=== PATIENT | male | born 1980 | race Caucasian/White ===

== ENCOUNTER → 2022-08-15 08:23 | Outpatient (CLI) | payer OTHER, SELFPAY ==
--- NOTE | ~2022-08-15 | US_ITS ---
Limited Abdominal Sonogram: Real-time sonographic imaging of the right upper quadrant was performed. Clinical History: Abnormal serum enzymes Findings: The liver appears echogenic, with no evidence of mass lesion or bile duct dilatation. Main portal vein demonstrates normal direction of flow. The gallbladder is well distended, and appears no rmal with no evidence of gallstone or wall thickening. The common bile duct measures 4 mm. The visua lized pancreas, aorta, and IVC are unremarkable. Impression: Diffuse fatty infiltration of liver. Reviewed, dictated and finalized at location M. [facility] Impression: Diffuse fatty infiltration of liver.
== END ==
PROVIDERS: PCP Family Medicine; Visit Provider Nurse Practitioner Family
DX: R74.8 Abnormal levels of other serum enzymes (principal); K76.0 Fatty (change of) liver, not elsewhere classified
CPT/HCPCS: 76705

== ENCOUNTER 2022-11-17 17:26 | Emergency (ER) | payer OTHER, SELFPAY ==
--- NOTE | ~2022-11-17 | XR_ITS ---
XR shoulder RT min 2V DATE: 11/17/2022 18:01 INDICATION: Shoulder popped out when reaching up TECHNIQUE: 4 views COMPARISON: 11/22/2008 right shoulder FINDINGS: There has been resection of the lateral portion of the right clavicle since 11/22/2008. No fracture or dislocation, periosteal reaction or bone destruction is noted. There is mild osteoarth ritic spurring at the glenohumeral joint. Mild calcification adjacent to the greater tuberosity sugge sts mild calcific tendinitis of the rotator cuff. IMPRESSION: Suggestion calcific tendinitis of rotator cuff Mild glenohumeral osteoarthritis Postoperative change of the lateral aspect of clavicle Reviewed, dictated and finalized at location A.
[2022-11-17 17:32] VITALS: BP 150/86; PULSE 88; RESP 20; TEMP 36.5; O2SAT 100
--- NOTE | 2022-11-17 17:49 | ED.UPPEXIN ---
HPI - Extremity Injury (Upper) General Chief Complaint: Extremity Injury, Upper Stated Complaint: rightr shoulder dislocation Time Seen by Provider: 11/17/22 17:49 History of Present Illness HPI narrative: PATIENT PRESENTS WITH CHRONIC PROBLEMS WITH HIS RIGHT SHOULDER. PATIENT FEELS IF HE HAS POPPED HIS SHOULDER OUT OF PLACE PATIETN STATES HE HAD A SHARP PAIN THIS AM AND HAS BEEN UNABLE TO RELIEVE HIS PAIN. NO CLAIR INJURY CHRONIC SHOULDER PROBLEMS Related Data Allergies Allergy/AdvReac Type Severity Reaction Status Date / Time No Known Allergies Allergy Verified 10/24/22 14:59 Review of Systems Review of Systems: CONSTITUTIONAL: DENIES FEVER, CHILLS, OR SWEATS. EYES: DENIES VISUAL CHANGES, REDNESS, OR DISCHARGE. ENT: DENIES RHINORRHEA, CONGESTION, SORE THROAT, OR OTALGIA. CARDIOVASCULAR: DENIES CHEST PAIN, PALPITATIONS, OR EDEMA. RESPIRATORY: DENIES COUGH OR DYSPNEA. GASTROINTESTINAL: DENIES ABDOMINAL PAIN, NAUSEA, VOMITING, OR DIARRHEA. GENITOURINARY: DENIES DYSURIA OR HEMATURIA. SKIN: DENIES RASH OR ITCHING. MUSCULOSKELETAL: DENIES BACK PAIN, JOINT PAIN, OR MYALGIA. NEUROLOGIC: DENIES HEADACHE, NUMBNESS, OR WEAKNESS. PSYCHIATRIC: DENIES ANXIETY OR DEPRESSION. [facility] Past Medical History Medical History (Updated 11/17/22 @ 18:25 by COLUMBA Fernández) Adult BMI 33.0-33.9 kg/sq m BMI 32.0-32.9,adult Essential hypertension Idiopathic gout Screening for lipid disorders Screening for prostate cancer Surgical History Surgical History H/O sinus surgery Family History Family History Father Hypertension Family history of diabetes mellitus in first degree relative Family history of coronary artery disease Family history of type 2 diabetes mellitus Mother Carcinoma of colon Social History Social History Smoking status: Never smoker Alcohol intake: current Comments AT TIME OF SIGNATURE, AGREE WITH NURSING PAST MEDICAL, SURGICAL, SOCIAL AND FAMILY HISTORY. THERE IS NO RELEVANT FAMILY HISTORY PERTINENT TO THE PRESENTING COMPLAINT Exam Narrative: GENERAL: WELL-APPEARING, WELL-NOURISHED, AND IN NO ACUTE DISTRESS. HEAD: NORMOCEPHALIC, ATRAUMATIC. EYES: PERRLA AND EOMI. ENT: NARES CLEAR, NO RHINORRHEA OR EPISTAXIS. MUCOUS MEMBRANES MOIST. NECK: SUPPLE. CHEST: CLEAR TO AUSCULTATION. NO RESPIRATORY DISTRESS. HEART: REGULAR RATE AND RHYTHM. NO MURMUR HEARD. NORMAL PERIPHERAL PULSES. ABDOMEN: SOFT, NONTENDER, NONDISTENDED, NORMAL ACTIVE BOWEL SOUNDS. EXTREMITIES: NORMAL RANGE OF MOTION. NO EDEMA.NO SWELLING, BRUISING, SKIN CHANGES. SKIN INTACT. NORMAL RADIAL PULSE. NO DEFORMITY OF SHOULDER. NO CLAVICLE TENDERNESS. NORMAL UE SENSATION AND STRENGTH. ROM EVALUATED - CAN RAISE UE ABOVE SHOULDER, CAN ABDUCT, ADDUCT, EXTERNALLY ROTATE AND CAN INTERNALLY ROTATE AND RAISE THUMB UP THE SPINE. NO AC JOINT TENDERNESS, CAN CROSS ARM HORIZONTALLY AND PLACE HAND ON OPPOSITE SHOULDER, NO WINGING OF THE SCAPULA. SUPRASPINATUS APPEARS NORMAL WITH ARMS STRAIGHT OUT AT 30 DEGREES, THUMB DOWN , CAN ABDUCT AGAINST RESISTANCE. SKIN: WARM, DRY, NO RASH. NEURO: NO FOCAL DEFICITS. ALERT AND ORIENTED X3. JACKY COMA SCALE EYE OPENING: SPONTANEOUS 4 JACKY COMA SCALE MOTOR: OBEYS COMMANDS 6 JACKY COMA SCALE VERBAL: ORIENTED 5 JACKY COMA SCALE TOTAL 15 Course Course Level of Care: Express Care Visit Vital Signs Vital signs: Vital Signs Temperature 36.5 C 11/17/22 17:32 Pulse Rate 88 11/17/22 17:32 Respiratory Rate 20 11/17/22 17:32 Blood Pressure 150/86 H 11/17/22 17:32 Pulse Oximetry 100 11/17/22 17:32 Oxygen Delivery Room Air 11/17/22 17:32 Temperature 36.5 C 11/17/22 17:32 Pulse Rate 88 11/17/22 17:32 Respiratory Rate 20 11/17/22 17:32 Blood Pressure 150/86 H 11/17/22 17:32 Pulse Oximetry 100 11/17/22 17:
== END 2022-11-17 18:29 | disposition home or self-care (01) ==
PROVIDERS: Emergency Provider Nurse Practitioner Family; PCP Family Medicine
DX: M19.011 Primary osteoarthritis, right shoulder (principal); S40.011A Contusion of right shoulder, initial encounter; X58.XXXA Exposure to other specified factors, initial encounter; G89.29 Other chronic pain; M25.511 Pain in right shoulder; I10 Essential (primary) hypertension; M10.00 Idiopathic gout, unspecified site
CPT/HCPCS: 73030; 99213; G0463